=== PATIENT | female | born 1960 | race Caucasian/White ===

== ENCOUNTER 2018-03-16 13:10 | Emergency (ER) | payer OTHER ==
[~2018-03-16] VITALS: Ht 162.6 cm; Wt 92.8 kg
[~2018-03-16 13:10] MED LIST: LO-DOSE ASPIRIN81 M2 PO; VITAMIN D-32000 UNI2 PO
[2018-03-16 13:44] LABS: HEMATOCRIT 41.2 % (36.0-46.0); HEMOGLOBIN 13.4 G/DL (11.9-15.5); MCH 28.5 PG (29.0-34.0); MCHC 32.5 G/DL (30.0-36.0); MCV 87.5 FL (83-99); PLATELET COUNT 274 K/uL (156-360); RBC DIS.WIDTH-CV 13.1 % (11.8-14.6); RBC DIS.WIDTH-SD 41.9 % (39-53); RED BLOOD COUNT 4.71 M/uL (3.80-5.20); WHITE BLOOD COUNT 7.4 K/uL (4.1-10.2)
[2018-03-16 13:53] LABS: CHLORIDE 105 mEq/L (99-109); POTASSIUM 4.2 mEq/L (3.7-5.4); SODIUM 142 mEq/L (136-147)
[2018-03-16 13:55] LABS: GLUCOSE 98 mg/dL (70-99)
[2018-03-16 13:59] LABS: CREATININE 1.1 mg/dL (0.6-1.3); GFR ESTIMATE (CALCULATED) 54 mL/min/; UREA NITROGEN (BUN) 19 mg/dL (9-23)
[2018-03-16 14:05] LABS: TROP-I INTERPRETATION NEGATIVE; TROPONIN-I 0.02 ng/mL (0.0-0.30)
[2018-03-16 16:47] LABS: TROP-I INTERPRETATION NEGATIVE; TROPONIN-I < 0.01 ng/mL (0.0-0.30)
[2018-03-16] MEDS ORDERED: BAYER BACK & B1 EACH PO (19:11)
[2018-03-16] MEDS ORDERED: XYZAL5 MG PO (19:12)
[2018-03-16] MEDS ORDERED: TRAMADOL HCL50 MG PO (20:29)
[2018-03-16] MEDS ORDERED: PERCOCET 5/31 TABLET PO (21:36)
[2018-03-16 21:50] VITALS: BP 126/79
== END 2018-03-16 22:08 | disposition home or self-care (01) ==
LOC: EME 13:10
PROVIDERS: Physician Assistant
DX: R07.9 Chest pain, unspecified (principal); M54.6 Pain in thoracic spine; M54.2 Cervicalgia; R51 Headache; Z73.3 Stress, not elsewhere classified; I44.0 Atrioventricular block, first degree; J98.11 Atelectasis; Z79.82 Long term (current) use of aspirin
CPT/HCPCS: 71046; 71275; 80048; 84484; 85027; 93005; 99281; 99285; J1885; J2270; J2405; J7030

== ENCOUNTER 2018-03-29 20:46 | Emergency (ER) | payer OTHER ==
[~2018-03-29] VITALS: Ht 162.6 cm; Wt 92.2 kg
[~2018-03-29 20:46] MED LIST changes: +BAYER BACK & B1 EACH PO; +PERCOCET 5/31 TABLET PO; +TRAMADOL HCL50 MG PO; +XYZAL5 MG PO
[2018-03-29 21:13] LABS: HEMATOCRIT 40.1 % (36.0-46.0); HEMOGLOBIN 13.2 G/DL (11.9-15.5); MCH 28.1 PG (29.0-34.0); MCHC 32.9 G/DL (30.0-36.0); MCV 85.3 FL (83-99); PLATELET COUNT 342 K/uL (156-360); RBC DIS.WIDTH-CV 12.6 % (11.8-14.6); RBC DIS.WIDTH-SD 38.8 % (39-53); WHITE BLOOD COUNT 10.8 K/uL (4.1-10.2)
[2018-03-29 21:29] LABS: CHLORIDE 105 mEq/L (99-109); POTASSIUM 4.3 mEq/L (3.7-5.4); SODIUM 140 mEq/L (136-147)
[2018-03-29 21:30] LABS: GLUCOSE 120 mg/dL (70-99)
[2018-03-29 21:34] LABS: CREATININE 1.1 mg/dL (0.6-1.3); GFR ESTIMATE (CALCULATED) 54 mL/min/
[2018-03-29 21:35] LABS: UREA NITROGEN (BUN) 23 mg/dL (9-23)
[2018-03-29 21:37] LABS: TROP-I INTERPRETATION NEGATIVE; TROPONIN-I < 0.01 ng/mL (0.0-0.30)
[2018-03-30] MEDS ORDERED: PERCOCET 5/31 TABLET PO (02:13)
[2018-03-30 03:11] VITALS: BP 111/78
== END 2018-03-30 03:13 | disposition home or self-care (01) ==
LOC: EME 20:46
PROVIDERS: Emergency Medicine
DX: R07.9 Chest pain, unspecified (principal); M25.512 Pain in left shoulder; R05 Cough; R53.83 Other fatigue; I44.0 Atrioventricular block, first degree; R79.1 Abnormal coagulation profile; I51.7 Cardiomegaly; E04.1 Nontoxic single thyroid nodule; K44.9 Diaphragmatic hernia without obstruction or gangrene
CPT/HCPCS: 71046; 71275; 80048; 84484; 85027; 85379; 93005; 99281; 99285; J3010

== ENCOUNTER → 2018-04-25 | Outpatient (CLI) | payer OTHER ==
[~2018-04-25] MED LIST changes: +LEVAQUIN500 MG PO
[2018-04-25 12:06] LABS: TYPE OF FLUID PLEURAL
[2018-04-25 12:31] LABS: APPEARANCE BLOODY; BODY FLUID RBC'S 41000 /MM^3 (0-100); BODY FLUID WBC'S 2185 /MM^3 (0-500)
[2018-04-25 12:41] LABS: BODY FLUID GLUCOSE 87 MG/DL; BODY FLUID LDH 142 IU/L
[2018-04-25 13:02] LABS: BODY FLUID EOSINOPHILS 0 % (0-25); MONONUCLEAR WBC'S 79 %; POLYNUCLEAR WBC'S 21 % (0-25)
== END | disposition home or self-care (01) ==
LOC: RAD 10:31 → EDSTATUS 11:00 → RAD 11:00
PROVIDERS: Internal Medicine Pulmonary Disease
PROC: 0W9G3ZZ Drainage of Peritoneal Cavity, Percutaneous Approach (ICD-10-PCS; principal; 2018-04-25)
DX: J90 Pleural effusion, not elsewhere classified (principal)
CPT/HCPCS: 76942; 82945; 83615 91; 84157; 87070; 87075; 87205; 89051

== ENCOUNTER → 2018-05-02 | Outpatient (CLI) | payer OTHER ==
[2018-05-02 14:49] LABS: TYPE OF FLUID PLEURAL
[2018-05-02 15:30] LABS: BODY FLUID GLUCOSE 89 MG/DL; BODY FLUID LDH 134 IU/L; BODY FLUID PROTEIN 4.5 G/DL
[2018-05-02 15:51] LABS: APPEARANCE TURBID; BODY FLUID EOSINOPHILS 0 % (0-25); BODY FLUID RBC'S 11000 /MM^3 (0-100); BODY FLUID WBC'S 2850 /MM^3 (0-500); MONONUCLEAR WBC'S 98 %; POLYNUCLEAR WBC'S 2 % (0-25)
== END | disposition home or self-care (01) ==
LOC: RAD 13:48 → EDSTATUS 14:00
PROVIDERS: Internal Medicine Pulmonary Disease
PROC: 0W9B3ZZ Drainage of Left Pleural Cavity, Percutaneous Approach (ICD-10-PCS; principal; 2018-05-02)
DX: J90 Pleural effusion, not elsewhere classified (principal)
CPT/HCPCS: 76942; 82945; 83615 91; 84157; 87070; 87075; 87205; 88108; 88305; 89051

== ENCOUNTER → 2018-05-09 | Outpatient (CLI) | payer OTHER | END | disposition home or self-care (01) | LOC: RAD 14:47 → EDSTATUS 15:00 → RAD 15:00 | PROC: BB4BZZZ Ultrasonography of Pleura (ICD-10-PCS; principal; 2018-05-09) | DX: J90 Pleural effusion, not elsewhere classified (principal); Z53.09 Procedure and treatment not carried out because of other contraindication | CPT/HCPCS: 76604 ==